=== PATIENT | female | born 1985 ===

== ENCOUNTER 2017-09-29 14:19 | Emergency (ER) | payer MEDICAID ==
[2017-09-29 14:20] VITALS: BMI 24.6
[2017-09-29 14:48] VITALS: RESP 16
--- NOTE | 2017-09-29 15:45 | C.PDOC ---
History Of Present Illness 32 yo female c/o fever, sore throat, and dry cough for three days. Took Motrin this morning. No known sick contacts. Denies chest pain, sob, rash, abdominal pain, symtpoms, or n/v. Did not received flu shot this year. Time Seen by Provider: 09/29/17 14:58 Chief Complaint (Nursing): Flu-like Symptoms History Per: Patient History/Exam Limitations: no limitations Onset/Duration Of Symptoms: Days Current Symptoms Are (Timing): Still Present Location Of Pain: Throat Associated Symptoms: Fever, Sore Throat, Cough Past Medical History Vital Signs: Last Vital Signs Temp 101 F H 09/29/17 14:46 Pulse 85 09/29/17 14:46 Resp 16 09/29/17 14:46 BP 111/75 09/29/17 14:46 Pulse Ox 97 09/29/17 14:46 - [facility] Procedures BILAT ENDOS OCC TUBE NEC (08/02/13) LAPAROSCOP LYSIS-PERITONEAL ADHES (08/02/13) Family History: States: Unknown Family Hx - Social History Hx Alcohol Use: No Hx Substance Use: No Review Of Systems Except As Marked, All Systems Reviewed And Found Negative. Constitutional: Positive for: Fever ENT: Positive for: Throat Pain Respiratory: Positive for: Cough Physical Exam - Physical Exam Appears: Well, Non-toxic, No Acute Distress Skin: Normal Color, Warm, Dry Head: Atraumatic, Normacephalic Eye(s): bilateral: Normal Inspection, PERRL, EOMI Ear(s): Bilateral: Normal Nose: Normal Oral Mucosa: Moist Throat: Normal, No Erythema, No Exudate, No Drooling Neck: Normal, Normal ROM, Supple Chest: Symmetrical Cardiovascular: Rhythm Regular Respiratory: Normal Breath Sounds Gastrointestinal/Abdominal: Normal Exam, Soft, No Tenderness Back: Normal Inspection Extremity: Normal ROM Neurological/Psych: Oriented x3, Normal Speech, Normal Cognition ED Course And Treatment O2 Sat by Pulse Oximetry: 97 - Radiology CXR: Interpreted by Me, Viewed By Me CXR Interpretation: Yes: No Acute Disease Progress Note: Discussed with pt symptomatic treatment and follow up with PMD in 1-2 days. Instructed to return to ER if symptoms persist or worsen. Disposition - Disposition Disposition: HOME/ ROUTINE Disposition Time: 15:47 Condition: STABLE Additional Instructions: Follow up with your primary medical doctor or clinic in 2-5 days for further evaluation. Take medications as prescribed. Return to the emergency department at any time if symptoms persist or worsen. Prescriptions: Guaifen/Dextromethorphan/PE [Mucinex Fast-Max Congest-Cough] 1 each PO Q6 #20 tablet Ibuprofen [Motrin] 600 mg PO Q6 PRN #20 tab PRN Reason: Pain, Mild (1-3) Oseltamivir Phosphate [Tamiflu] 75 mg PO BID #10 capsule Instructions: Influenza (ED) - Clinical Impression Clinical Impression: Fever, Viral illness
--- NOTE | 2017-09-29 15:48 | RAD ---
HISTORY: fever uri COMPARISON: None available. TECHNIQUE: Chest PA and lateral FINDINGS: LUNGS: Minimal left basilar atelectasis. No focal consolidation. Please note that chest x-ray has limited sensitivity for the detection of pulmonary masses. PLEURA: No significant pleural effusion identified. No definite pneumothorax . CARDIOVASCULAR: The cardiomediastinal silhouette appears within normal limits of size. OSSEOUS STRUCTURES: No acute osseous abnormality identified. VISUALIZED UPPER ABDOMEN: Unremarkable. OTHER FINDINGS: None. IMPRESSION: Basilar atelectasis.
[2017-09-29 15:58] VITALS: BP 110/75; PULSE 84; TEMP 100
[2017-09-29 16:25] VITALS: O2SAT 97
== END 2017-09-29 15:57 | disposition home or self-care (01) ==
LOC: C.ER 14:19
DX: B34.9 Viral infection, unspecified (principal); R50.9 Fever, unspecified